=== PATIENT | male | born 1955 | race Caucasian/White ===

== ENCOUNTER → 2023-08-10 10:32 | Outpatient (REF) | payer OTHER, SELFPAY | LOC: RCS 10:32 | PROVIDERS: ATTENDING PHYSICIAN Internal Medicine Cardiovascular Disease; FAMILY PHYSICIAN Family Medicine | DX: R07.89 Other chest pain (principal) | CPT/HCPCS: 93017 ==

== ENCOUNTER → 2024-08-01 09:36 | Outpatient (REF) | payer OTHER, SELFPAY | LOC: DHVS 09:36 | PROVIDERS: ATTENDING PHYSICIAN Student in an Organized Health Care Education/Training Program; FAMILY PHYSICIAN Family Medicine | DX: I73.9 Peripheral vascular disease, unspecified (principal) | CPT/HCPCS: 93923 ==

== ENCOUNTER → 2024-10-15 16:26 | Outpatient (REF) | payer OTHER, SELFPAY | LOC: RAD 16:26 | PROVIDERS: ATTENDING PHYSICIAN Surgery Vascular Surgery; FAMILY PHYSICIAN Family Medicine | DX: I73.9 Peripheral vascular disease, unspecified (principal) | CPT/HCPCS: 75635; Q9967 ==

== ENCOUNTER 2025-05-28 05:47 | Day surgery (SDC) | payer OTHER, SELFPAY ==
[2025-05-28] VITALS (9 sets, daily range): BP systolic 111–139; BP diastolic 60–84; BMI 27.0
[2025-05-28] MEDS: TYLENOL 1000 MG PO (06:28)
[2025-05-28] MEDS: CELEBREX 200 MG PO (06:28)
[2025-05-28] MEDS: NORMOSOL-R/PLASMALYTE-A 1000 IV (06:36)
== END 2025-05-28 10:05 | disposition home or self-care (01) ==
LOC: SDS 05:47
PROVIDERS: ATTENDING PHYSICIAN Student in an Organized Health Care Education/Training Program
DX: M20.5X1 Other deformities of toe(s) (acquired), right foot (principal); I73.9 Peripheral vascular disease, unspecified; L97.512 Non-pressure chronic ulcer of other part of right foot with fat layer exposed; M20.41 Other hammer toe(s) (acquired), right foot
CPT/HCPCS: 28292; 28308; 11042; C1713